=== PATIENT | male | born 1960 | race Caucasian/White ===

== ENCOUNTER → 2019-12-10 | Outpatient (CLI) | payer BC ==
[~2019-12-10] MED LIST: AZIT250; CEPH500 PO; CLIN300 PO; CLOT1TC TOP; Cyclobenzaprine5 MG PO; FEXO60; FEXPSEER PO; META800 PO; OXYACE5T PO; VALA500 PO
[2019-12-10 13:45] LABS: BASOPHILS ABSOLUTE AUTO 0.06 K/mm3 (0.00-0.23); BASOPHILS PERCENT AUTO 1 % (0-2); EOSINOPHILS ABSOLUTE AUTO 0.17 K/mm3 (0.00-0.68); EOSINOPHILS PERCENT AUTO 3 % (0-6); Hematocrit 42.6 % (37.0-53.0); IMMATURE GRAN ABSOLUTE AUTO 0.02 K/mm3 (0.00-0.10); IMMATURE GRAN PERCENT AUTO 0 % (0-1); LYMPHOCYTES ABSOLUTE AUTO 1.45 K/mm3 (0.84-5.20); LYMPHOCYTES PERCENT AUTO 25 % (21-46); MONOCYTES ABSOLUTE AUTO 0.57 K/mm3 (0.16-1.47); MONOCYTES PERCENT AUTO 10 % (4-13); Mean Corpuscular HGB Conc 32.9 g/dL (31.5-36.5); Mean Corpuscular Volume 91 fL (80-100); Mean Platelet Volume 9.7 fL (9.1-12.4); NEUTROPHILS ABSOLUTE AUTO 3.57 K/mm3 (1.96-9.15); NEUTROPHILS PERCENT AUTO 61 % (41-73); Platelet Count 380 K/mm3 (150-400); RDW Coefficient Variation 12.5 % (11.7-14.2); RDW Standard Deviation 41.3 fL (35.1-46.3); Red Blood Cell Count 4.66 M/mm3 (4.30-5.90); White Blood Cell Count 5.84 K/mm3 (4.00-11.30)
[2019-12-10 13:55] LABS: Alanine Aminotransfer (ALT/SGP 19 U/L (12-78); Albumin, Blood 3.7 g/dL (3.4-5.0); Albumin/Globulin Ratio 0.9 (0.8-1.8); Alk Phos 90 U/L (40-126); Anion Gap 10 mmol/L (6-16); Aspartate Aminotrans (AST/SGOT 15 U/L (12-37); Bilirubin, Total 0.3 mg/dL (0.1-1.0); Blood Urea Nitrogen 18 mg/dL (8-24); Bun/Creatinine Ratio 17.3 (12.0-20.0); CO2, Blood 28 mmol/L (21-32); Calcium, Blood 8.2 mg/dL (8.5-10.1); Chloride, Blood 105 mmol/L (98-108); Creatinine, Blood 1.04 mg/dL (0.60-1.20); Globulin, Blood 4.2 g/dL (2.2-4.0); Glomerular Filtration Rate >60 (60-); Glucose, Blood 122 mg/dL (70-99); Potassium, Blood 3.9 mmol/L (3.5-5.5); Sodium, Blood 143 mmol/L (136-145); Total Protein, Blood 7.9 g/dL (6.4-8.2); Uric Acid, Blood 3.6 mg/dL (3.5-7.2)
[2019-12-13 10:22] LABS: Antinuclear Antibody Screen Positive (Negative)
[2019-12-13 13:24] LABS: Rheumatoid Factor, Serum Negative (Negative)
[2019-12-14 08:09] LABS: COMPLEMENT C4, SERUM 33 mg/dL (14-44)
[2019-12-15 11:37] LABS: ANA Pattern Homogenous
[2019-12-15 18:08] LABS: RNP ANTIBODIES <0.2 AI (0.0-0.9); SJOGREN'S ANTI-SS-A <0.2 AI (0.0-0.9); SJOGREN'S ANTI-SS-B <0.2 AI (0.0-0.9); SMITH ANTIBODIES <0.2 AI (0.0-0.9)
[2019-12-16 07:08] LABS: ANTI-DSDNA ANTIBODIES 2 IU/mL (0-9); COMPLEMENT C3, SERUM 146 mg/dL (82-167)
== END | disposition home or self-care (01) ==
LOC: LAB EV 13:39 → LAB SHORT 13:39
PROVIDERS: Physician Assistant
DX: M13.0 Polyarthritis, unspecified (principal)
CPT/HCPCS: 80053; 84550; 85025; 85651; 86038; 86039; 86140; 86160; 86225; 86235; 86430

== ENCOUNTER → 2021-05-25 | Outpatient (CLI) | payer BC | END | disposition home or self-care (01) | LOC: LAB 17:25 → LAB SHORT 17:25 | DX: Z20.822 Contact with and (suspected) exposure to COVID-19 (principal) | CPT/HCPCS: U0003 ==